=== PATIENT | female | born 1980 | race Caucasian/White ===

== ENCOUNTER 2020-04-10 06:54 | Emergency (ER) | payer MEDICAID ==
[~2020-04-10] VITALS: Ht 160 cm; Wt 68.0 kg
[2020-04-10 07:16] VITALS: BP 144/103
--- NOTE | 2020-04-10 07:58 | NUR ---
Patient discharged to home in stable condition. Written and verbal after care instructions given. Patient verbalizes understanding of instruction.
== END 2020-04-10 07:58 | disposition home or self-care (01) ==
LOC: ER 06:54
DX: L03.211 Cellulitis of face (principal); K04.7 Periapical abscess without sinus; Z98.890 Other specified postprocedural states

== ENCOUNTER 2021-01-13 15:35 | Emergency (ER) | payer MEDICAID ==
[~2021-01-13] VITALS: Ht 160 cm; Wt 63.5 kg
[2021-01-13 15:40] VITALS: BP 133/100
--- NOTE | 2021-01-13 15:50 | NUR ---
PT C/O CHIN PAIN X1 DAY. PAIN IS RATED 7/10. ADDITIONALLY C/O DYSURIA AND BLOOD SPOTTING X 2 DAYS. ADMITS DIAPHORESIS. DENIES N/V, FEVER. A&OX4. AMBULATORY. RR EVEN AND UNLABORED. PULSES 2+ BILATERALLY. CHIN IS SLIGHTLY SWOLLEN AND SLIGHTLY RED. NEGATIVE CVA TENDERNESS.
[2021-01-13] MEDS ORDERED: CEFTRIAXONE 500 MG VIAL IM ONE (16:00)
[2021-01-13] MEDS ORDERED: DOXYCYCLINE HYCLATE (100 MG) 100 MG TABLET PO ONE (16:00)
[2021-01-13] MEDS ORDERED: [UNRECOGNIZED DRUG - CODE] TP (16:04)
[2021-01-13] MEDS ORDERED: IBUP-1955 PO (16:04)
[2021-01-13] MEDS ORDERED: DOXY-226 PO (16:04)
[2021-01-13] MEDS ORDERED: CEFTRIAXONE 500 MG VIAL ONE (16:32)
[2021-01-13] MEDS ORDERED: DOXYCYCLINE HYCLATE (100 MG) 100 MG TABLET ONE (16:32)
[2021-01-13 16:34] LABS: BILIRUBIN,URINE SMALL (NEGATIVE); COLOR,URINE YELLOW (YELLOW); LEUKOCYTE ESTERASE ,URINE LARGE (NEGATIVE); NITRITE, URINE NEGATIVE (NEGATIVE); PROTEIN,URINE TRACE mg/dl (NEGATIVE); UGLUCOSE NEGATIVE (NEGATIVE)
[2021-01-13] MEDS ORDERED: LIDOCAINE /MPF 1% VIAL 5 ML VIAL ONE (16:37)
[2021-01-13 16:48] LABS: BACTERIA,URINE 3+ /HPF (None Seen); RBC,URINE 0-2 /HPF (0-2); WBC,URINE 81-100 /HPF (0-3)
== END 2021-01-13 17:06 | disposition home or self-care (01) ==
LOC: ER 15:37
DX: L70.0 Acne vulgaris (principal); Z20.2 Contact with and (suspected) exposure to infections with a predominantly sexual mode of transmission; Z79.899 Other long term (current) drug therapy
CPT/HCPCS: 81001; 84703; 87077; 87086; 87186; 87491; 87591; 96372; 99283; J0696; J3490